=== PATIENT | female | born 1990 | race Caucasian/White ===

== ENCOUNTER 2023-07-19 09:58 | Day surgery (SDC) | payer OTHER ==
[~2023-07-19] VITALS: Ht 165.1 cm; Wt 74.4 kg
[2023-07-19] MEDS ORDERED: fentaNYL citrate 0.05 MG/ML VIAL ONE (12:37)
[2023-07-19] MEDS ORDERED: LIDOCAINE 2% 100 MG/5 ML UJET TP ONE (12:38)
[2023-07-19] MEDS ORDERED: MIDAZOLAM 5 MG/5 ML VIAL ONE (12:38)
[2023-07-19] MEDS ORDERED: EPINEPHrine PFS 0.1 MG/ML SYR IVP ONE (14:20)
[2023-07-19] MEDS ORDERED: EPINEPHrine 1 MG/ML AMP SUBQ ONE (14:55)
[2023-07-19] MEDS ORDERED: MIDAZOLAM 2 MG/2 ML VIAL IV ONE (16:50)
== END 2023-07-19 15:15 | disposition home or self-care (01) ==
LOC: MDS 09:58 → MMU 09:59 → MDS 15:15
PROVIDERS: ATTEND Internal Medicine Gastroenterology
DX: Z12.11 Encounter for screening for malignant neoplasm of colon (principal); D12.2 Benign neoplasm of ascending colon; K64.9 Unspecified hemorrhoids; K64.4 Residual hemorrhoidal skin tags; Z90.710 Acquired absence of both cervix and uterus; Z98.890 Other specified postprocedural states; Z80.0 Family history of malignant neoplasm of digestive organs; Z88.1 Allergy status to other antibiotic agents
CPT/HCPCS: 43239; 45381; 45385; 88305; J0171; J2250; J3010